=== PATIENT | male | born 2000 | race Two or more races ===

== ENCOUNTER 2023-08-29 22:35 | Emergency (ER) | payer MEDICAID ==
[~2023-08-29] VITALS: Ht 175.3 cm; Wt 72.7 kg
[2023-08-29 22:52] VITALS: TEMP 98.8
[2023-08-29] MEDS: ibuprofen tablet 400 MG TABLET PO ONE (23:05)
[2023-08-29] MEDS: HYDROcodone/acetaminophen 10/325mg tab PO ONE (23:05)
[2023-08-30] MEDS ORDERED: ACET-2615 PO (00:13)
[2023-08-30] MEDS ORDERED: IBUP-1984 PO (00:13)
[2023-08-30 00:27] VITALS: BP 102/87; PULSE 80; RESP 14; O2SAT 99
== END 2023-08-30 00:29 | disposition home or self-care (01) ==
LOC: ER 22:37
DX: S93.401A Sprain of unspecified ligament of right ankle, initial encounter (principal); X58.XXXA Exposure to other specified factors, initial encounter; Y93.66 Activity, soccer; Y92.89 Other specified places as the place of occurrence of the external cause; Y99.8 Other external cause status
CPT/HCPCS: 73610; 73630; 99284

== ENCOUNTER 2023-10-22 06:32 | Emergency (ER) | payer MEDICAID ==
[~2023-10-22] VITALS: Ht 177.8 cm; Wt 83.8 kg
[2023-10-22 06:36] VITALS: BP 147/94; PULSE 75; RESP 16; TEMP 98.5; O2SAT 100
[2023-10-22] MEDS ORDERED: OXYC-138 PO (07:21)
[2023-10-22] MEDS: HYDROcodone/acetaminophen 10/325mg tab PO ONE (07:28)
== END 2023-10-22 07:58 | disposition home or self-care (01) ==
LOC: ER 06:32
DX: S62.034A Nondisplaced fracture of proximal third of navicular [scaphoid] bone of right wrist, initial encounter for closed fracture (principal); Z79.899 Other long term (current) drug therapy; X58.XXXA Exposure to other specified factors, initial encounter; Y93.89 Activity, other specified; Y92.89 Other specified places as the place of occurrence of the external cause; Y99.8 Other external cause status
CPT/HCPCS: 29125; 73110; 99283

== ENCOUNTER 2023-10-28 15:13 | Emergency (ER) | payer MEDICAID, OTHER ==
[~2023-10-28] VITALS: Ht 175.3 cm; Wt 69.0 kg
[~2023-10-28 15:13] MED LIST: OXYC-138 PO
[2023-10-28 15:14] VITALS: BP 145/72; PULSE 64; RESP 18; O2SAT 98
[2023-10-28 16:16] VITALS: TEMP 98.4
== END 2023-10-28 15:53 | disposition home or self-care (01) ==
LOC: ER 15:14
DX: S62.001A Unspecified fracture of navicular [scaphoid] bone of right wrist, initial encounter for closed fracture (principal); Z02.79 Encounter for issue of other medical certificate; X58.XXXA Exposure to other specified factors, initial encounter; Y93.89 Activity, other specified; Y92.89 Other specified places as the place of occurrence of the external cause; Y99.8 Other external cause status
CPT/HCPCS: 99281